=== PATIENT | female | born 1960 | race African-American/Black ===

== ENCOUNTER 2020-06-01 00:06 | Emergency (ER) | payer OTHER ==
[2020-06-01] MEDS ORDERED: EPINEPHrine 1 MG/10 ML Abboject SYRINGE ONE (09:10)
[2020-06-01] MEDS ORDERED: Sodium Bicarb 50 MEQ/50 ML Abboject 8.4% SYRINGE ONE (09:10)
[2020-06-01] MEDS ORDERED: Calcium Chloride 1 GM/10 ML Abboject SYRINGE ONE (09:10)
== END 2020-06-01 00:23 | disposition expired ==
LOC: ERS 00:06 → EDBD 00:06 → ERS 00:23
DX: I46.9 Cardiac arrest, cause unspecified (principal)
CPT/HCPCS: 31500; 92950; J0171